=== PATIENT | female | born 1975 | race Caucasian/White ===

== ENCOUNTER 2017-10-29 23:45 | Inpatient (IN) | END 2017-11-01 09:15 | disposition home or self-care (01) | DRG 781 ==

== ENCOUNTER 2017-11-07 12:10 | Outpatient (CLI) | END 2017-11-07 16:45 | disposition home or self-care (01) ==

== ENCOUNTER 2017-11-13 11:35 | Outpatient (CLI) | END 2017-11-13 12:56 | disposition home or self-care (01) ==

== ENCOUNTER 2017-11-19 08:02 | Inpatient (IN) | END 2017-11-22 15:15 | disposition home or self-care (01) | DRG 765 ==